=== PATIENT | male | born 1990 | race Caucasian/White ===

== ENCOUNTER 2018-08-02 18:06 | Outpatient (REF) | payer OTHER, MEDICAID, SELFPAY ==
[2018-08-02 19:10] LABS: Lithium 0.67 mmol/L (0.60-1.20)
[2018-08-02 19:23] LABS: ALT 67 U/L (12-78); AST 26 U/L (15-37); Albumin 4.7 g/dL (3.4-5.0); Alkaline Phosphatase 74 U/L (46-116); Anion Gap 8.9 mmol/L (3-11); BUN 15 mg/dL (7-18); Bilirubin, Total 0.9 mg/dL (0.2-1.0); CO2 27.1 mmol/L (21.0-32.0); Calcium 9.8 mg/dL (8.5-10.1); Chloride 105 mmol/L (98-107); Glucose 88 mg/dL (70-100); Potassium 4.2 mmol/L (3.5-5.1); Sodium 141 mmol/L (136-145); TSH 1.87 uIU/mL (0.358-3.74); Total Protein 7.8 g/dL (6.4-8.2)
== END 2018-08-02 18:26 ==
LOC: NCHCN 18:06
PROVIDERS: PCP Family Medicine; Visit Provider Nurse Practitioner Family
DX: E03.9 Hypothyroidism, unspecified (principal); Z51.81 Encounter for therapeutic drug level monitoring; Z79.899 Other long term (current) drug therapy; E66.8 Other obesity
CPT/HCPCS: 80053; 80178; 84443

== ENCOUNTER 2021-02-19 15:11 | Outpatient (REF) | payer MEDICARE, MEDICAID, SELFPAY ==
[2021-02-19 15:20] LABS: Abs Immature Grans 0.03 10^3/uL (0.0-0.06); Absolute Basophil Count 0.04 10^3/uL (0.0-0.2); Absolute Eosinophil Count 0.17 10^3/uL (0.0-0.7); Absolute Lymphocyte Count 1.58 10^3/uL (1.2-3.4); Absolute Monocyte Count 0.38 10^3/uL (0.1-0.8); Absolute Neutrophil Count 4.47 10^3/uL (1.2-6.7); Basophils % 0.6; Eosinophils % 2.5; HCT 52.8 % (40.0-50.0); HGB 17.5 g/dL (13.5-17.5); Immature Grans % 0.4; Lymphocytes % 23.7; MCHC 33.1 % (32.0-36.0); MCV 90.4 fL (80-95); MPV 10.3 fL (8.0-11.0); Monocytes % 5.7; Neutrophils % 67.1; Nucleated RBC 0 %; Platelet Count 314 10^3/uL (130-400); RBC 5.84 10^6/uL (4.36-5.78); RDW 12.6 % (11.8-14.1); RDW-SD 41.1 fL; WBC 6.67 10^3/uL (4.4-10.8)
[2021-02-19 15:34] LABS: Epithelial Cells Rare HPF (Negative); RBC Negative HPF (0-2); WBC 0-2 HPF (0-5)
[2021-02-19 15:35] LABS: Bacteria Negative HPF (Negative); C & S Indicated? No; Casts Negative LPF (Negative); Crystals Negative HPF (Negative); Mucus Negative (Negative); Other Cells Rare Renal (Negative)
[2021-02-19 15:50] LABS: ALT 98 U/L (16-63); AST 39 U/L (15-37); Albumin 5.3 g/dL (3.4-5.0); Alkaline Phosphatase 80 U/L (46-116); Anion Gap 8.7 mmol/L (3-11); BUN 14 mg/dL (7-18); Bilirubin, Total 1.3 mg/dL (0.2-1.0); CO2 30.3 mmol/L (21.0-32.0); CREATININE 1.2 mg/dL (0.70-1.30); Calcium 10.5 mg/dL (8.5-10.1); Chloride 102 mmol/L (98-107); Glucose 104 mg/dL (74-106); Potassium 4.1 mmol/L (3.5-5.1); Sodium 141 mmol/L (136-145); TSH (W/Ref FT4) 1.52 uIU/mL (0.36-3.74); Total Protein 8.7 g/dL (6.4-8.2)
[2021-02-19 16:31] LABS: Hemoglobin A1C 5.2 % (<5.7)
== END 2021-02-19 15:12 | disposition home or self-care (01) ==
LOC: NCHCN 15:11
PROVIDERS: PCP Nurse Practitioner Family; Visit Provider Nurse Practitioner Family
DX: E03.9 Hypothyroidism, unspecified (principal); Z79.899 Other long term (current) drug therapy; Z68.41 Body mass index [BMI] 40.0-44.9, adult; Z00.00 Encounter for general adult medical examination without abnormal findings
CPT/HCPCS: 80053; 80178; 81015; 83036; 84443; 85025

== ENCOUNTER 2021-05-17 18:45 | Emergency (ER) | payer MEDICARE, MEDICAID, SELFPAY ==
[2021-05-17] VITALS (31 sets, daily range): BP systolic 129–180; BP diastolic 76–116; PULSE 92–124; RESP 13–38; TEMP 36.7; O2SAT 93–100
--- NOTE | 2021-05-17 18:45 | RT.EKG_ITS ---
APPROVED REPORT Exam: Resting ECG Reason for Exam: od Patient Location: E HR:94 bpm ECG Measurements Heart Rate 94 AXIS IL 176 P 33 QRSd 110 QRS -15 QT 390 T 39 QTc 489 Conclusion Sinus rhythm...normal P axis, V-rate 60- 99 Prolonged QT interval...QTc >488mS. No STEMI. I have reviewed and interpreted ECG and agree with software generated interpretation.
--- NOTE | 2021-05-17 19:00 | DI.RAD_ITS ---
Exam(s) XR PORTABLE CHEST AP EXAM: XR PORTABLE CHEST AP CLINICAL HISTORY: OD, ? aspiration TECHNIQUE: 2D digital imaging was performed. COMPARISON: CR CHEST 2 VIEWS PA,LAT from 05/26/2015 FINDINGS: The exam is extremely limited by poor pulmonary inflation. There is no evidence of pneumothorax. No pleural effusion or infiltrate is visible. Heart size is likely within normal limits for degree of inspiration. IMPRESSION: Extremely limited exam. No acute pulmonary findings. DATA REPOSITORY: RADIATION DOSE DELIVERED:
[2021-05-17] MEDS: Ondansetron 4 MG/2 ML VIAL (19:12)
[2021-05-17] MEDS: LORazepam 2 MG/ML VIAL ×3 (19:13→20:08)
--- NOTE | 2021-05-17 19:14 | ED.GENADUL_ITS ---
Discharge Plan Disposition Patient Disposition: [facility] Condition: Critical Discharge Details Clinical Impression: Intentional diphenhydramine overdose, Seizure Primary Care Provider: Juan Francisco Rodríguez ED Provider: Winifred Alaniz Home Meds and New Rx's Prescriptions: No Action lithium carbonate 600 MG capsule 600 mg PO BID RF: 0 levothyroxine [Levoxyl] 50 MCG tablet 50 mcg PO DAILY RF: 0 cholecalciferol (vitamin D3) 1,000 UNIT capsule 1,000 units PO DAILY RF: 0 aripiprazole [Abilify] 20 MG tablet 20 mg PO DAILY RF: 0 quetiapine [Seroquel] 50 MG tablet 50 mg PO BID RF: 0 Discharge Data Discharge Date/Time-TO BE ENTERED AT DEPARTURE: 05/17/21 22:20 Medical Decision Making 1850 -- 30yo M w/ a h/o depression presents to the ED after intentional Benadryl overdose 10 minutes prior to arrival. BP 154/76. Heart rate 100. EMS reported that patient was awake and alert and oriented x3 and speaking in full sentences upon their arrival. He was able to ambulate onto the stretcher. Upon my assessment, patient mental status is sluggish but he is oriented x3. He is not able to state to me what he ingested and appears confused. EMS states that patient reports that he ingested 96 tabs of 50 mg Benadryl for total of 9600 mg minutes prior to arrival. PRADIP Morfin discussed with poison control who noted that main side effect regarding large Benadryl overdose include mainly anticholinergic side effects including hypertension, tachycardia, POLYSOMNOGRAPHY TECHNICIAN depression. With an amount of 9600 mg, can be concerned with seizures for which benzodiazepines can be given, and QRS widening for which bicarbonate 1 to 2 amp as needed can be given. If patient becomes asymptomatic, can consider discharge 8 hours of observation. If patient remains symptomatic, will need 12 to 24 hours of observation with ICU admission. Shortly after my assessment, patient began gagging, appeared to have large amount of secretions in his airway. This was suctioned and he vomited. He was given 4 mg Zofran and 1 mg Ativan IV. He remains tachycardic and hypertensive. Oxygen saturation mid to high 90s on room air. ABG noted a pH of 7.4, PCO2 38, PO2 64. HR low 100s, Narrow QRS on monitor. Patient placed on nasal cannula oxygen. 1914 -- Patient appears more sedated, sonorous respirations. Patient placed on nonrebreather. Low threshold for intubation for airway protection. Discussed with hospitalist who does not feel comfortable with admission here. [facility] transfer [place] contacted. 1944 -- Pt had 2 seizures [id number]. Patient given multiple doses of Ativan with some relief in seizure activity but appears agitated and postictal. Patient intubated with RSI using CMAC on 1st attempt. PRADIP Morfin d/w [facility] transfer center and cannot take the patient for several hours. Discussed with [facility] transfer center and patient accepted for admission. Accepting physician Dr. Christopher. Recommended 1 L of GoLYTELY through the OG tube. 2034 -- [facility] transfer center called and bed now available. Bed not yet available at [facility]. Will transfer pt to [facility] and accepting physician Dr. Bach. [facility] notified that transfer to them is cancelled. [facility] notified of 1 L of GoLYTELY given through OG tube. Portable chest x-ray noted intubation mainly in right mainstem bronchus with near opacification of left lung, but this was pulled back 2 cm and repeat chest x-ray noted near resolution of opacification of left lung and with tube remaining close to the bertin and was pulled back an additional 1 cm. Patient remained hemodynamically stable. Normal narrow QRS noted on monitor while in the ED. Medical Records Medical records reviewed: Yes I reviewed the patient's medical records. Imaging Data Radiologic Study: Radiologist's impression: XR Chest Exam date and time: 05/17/2021 8:49 PM Age: 30 years old Clinical indication: Other: Post intubation confirm TECHNIQUE: Imaging protocol: XR of the chest. Views: 1 view. COMPARISON: CR XR PORTABLE CHEST AP 05/17/2021 8:40 PM FINDINGS: Tubes, catheters and devices: There has been retraction of the endotracheal tube with its tip now residing 5 mm proximal to the bertin. Again noted is a nasogastric tube which extends at least to the level of the upper gastric body. Lungs: There has been re-expansion of most of the left lung with residual mild airspace opacity at the left lung base. Again noted is mild subsegmental atelectasis within the lower lateral right lung. There is no pulmonary vascular congestion. Pleural spaces: There is no evidence of pneumothorax. There are no pleural effusions present. Heart/Mediastinum: Heart size is indeterminate. Bones/joints: Unremarkable. IMPRESSION: 1. The tip of the endotracheal tube now resides 5 mm proximal to the bertin. Recommend further retraction by 1-2 cm. 2. Interval re-expansion of most of the left lung as described above. Lab Data Lab results reviewed: Yes I reviewed the patient's lab results. Labs: Laboratory Tests Range/Units 05/17/21 05/17/21 05/17/21 19:10 19:10 19:10 WBC (4.4-10.8) 10^3/uL 8.46 RBC (4.36-5.78) 10^6/uL 5.56 Hgb (13.5-17.5) g/dL 16.4 Hct (40.0-50.0) % 49.8 MCV (80-95) fL 89.6 MCH (27.0-33.0) pg 29.5 MCHC (32.0-36.0) % 32.9 RDW (11.8-14.1) % 12.4 Plt Count (130-400) 10^3/uL 303 MPV (8.0-11.0) fL 9.9 Immature Gran % 0.4 Neutrophils % 67.2 Lymphocytes % 26.6 Monocytes % 3.7 Eosinophils % 1.9 Basophils % 0.2 Nucleated RBC % % 0 Absolute Neutrophils (1.2-6.7) 10^3/uL 5.69 Absolute Lymphocytes (1.2-3.4) 10^3/uL 2.25 Absolute Monocytes (0.1-0.8) 10^3/uL 0.31 Absolute Eosinophils (0.0-0.7) 10^3/uL 0.16 Absolute Basophils (0.0-0.2) 10^3/uL 0.02 PT (9.3-11.0) sec INR (0.9-1.1) APTT (21.0-27.5) sec ABG Sample Site ABG pH (7.35-7.45) ABG pCO2 (35-45) mmHg ABG pO2 (80-105) mmHg ABG HCO3 (22-26) mmol/L ABG Total CO2 (23-27) mmol/L ABG O2 Saturation (95-98) % ABG Base Excess (-2-3) mmol/L VBG pH VBG pCO2 VBG pO2 VBG HCO3 VBG Total CO2 VBG O2 Saturation VBG Base Excess Oxygen Liter Flow L Sodium (136-145) mmol/L 142 Potassium (3.5-5.1) mmol/L 3.2 L Chloride (98-107) mmol/L 104 Carbon Dioxide (21.0-32.0) mmol/L 25.2 Anion Gap (3-11) mmol/L 12.8 H BUN (7-18) mg/dL 9 Creatinine (0.70-1.30) mg/dL 1.1 Estimated GFR/1.73 m2 (mL/min/1.73m2) >= 60.00 Glucose (74-106) mg/dL 87 Calcium (8.5-10.1) mg/dL 9.9 Magnesium (1.8-2.4) mg/dL 1.8 Total Bilirubin (0.2-1.0) mg/dL 2.4 H AST (15-37) U/L 38 H ALT (16-63) U/L 101 H Alkaline Phosphatase (46-116) U/L 65 Troponin I (<0.06) ng/mL < 0.05 Total Protein (6.4-8.2) g/dL 8.0 Albumin (3.4-5.0) g/dL 4.4 Urine Color (Yellow) Urine Clarity (Clear) Urine pH (5-8) Ur Specific [place] (1.005-1.025) Urine Protein (Negative) mg/dL Urine Ketones (Negative) mg/dL Urine Blood (Negative) Urine Nitrite (Negative) Urine Bilirubin (Negative) Urine Urobilinogen (Up TO 0.2) EU/dL Ur Leukocyte Esterase (Negative) Urine RBC (0-2) HPF Urine WBC (0-5) HPF Ur Epithelial Cells (Negative) HPF Urine Crystals (Negative) HPF Urine Bacteria (Negative) HPF Urine Mucus (Negative) Ur Culture Indicated? Urine Glucose (Negative) mg/dL Salicylates (<2.8) mg/dL < 2.8 Urine Opiates Screen (Negative) Urine Methadone Screen (Negative) Acetaminophen (10-30) ug/mL < 2 Ur Barbiturates Screen (Negative) Ur Tricyclics Screen (Negative) Ur Amphetamines Screen (Negative) U Benzodiazepines Scrn (Negative) Urine Cocaine Screen (Negative) Ur THC Screen (Negative) Ethyl Alcohol (<3) mg/dL 6.3 Range/Units 05/17/21 05/17/21 05/17/21 19:10 19:10 19:11 WBC (4.4-10.8) 10^3/uL RBC (4.36-5.78) 10^6/uL Hgb (13.5-17.5) g/dL Hct (40.0-50.0) % MCV (80-95) fL MCH (27.0-33.0) pg MCHC (32.0-36.0) % RDW (11.8-14.1) % Plt Count (130-400) 10^3/uL MPV (8.0-11.0) fL Immature Gran % Neutrophils % Lymphocytes % Monocytes % Eosinophils % Basophils % Nucleated RBC % % Absolute Neutrophils (1.2-6.7) 10^3/uL Absolute Lymphocytes (1.2-3.4) 10^3/uL Absolute Monocytes (0.1-0.8) 10^3/uL Absolute Eosinophils (0.0-0.7) 10^3/uL Absolute Basophils (0.0-0.2) 10^3/uL PT (9.3-11.0) sec 10.4 INR (0.9-1.1) 1.0 APTT (21.0-27.5) sec 26.3 ABG Sample Site ABG pH (7.35-7.45) ABG pCO2 (35-45) mmHg ABG pO2 (80-105) mmHg ABG HCO3 (22-26) mmol/L ABG Total CO2 (23-27) mmol/L ABG O2 Saturation (95-98) % ABG Base Excess (-2-3) mmol/L VBG pH Cancelled VBG pCO2 Cancelled VBG pO2 Cancelled VBG HCO3 Cancelled VBG Total CO2 Cancelled VBG O2 Saturation Cancelled VBG Base Excess Cancelled Oxygen Liter Flow L Sodium (136-145) mmol/L Potassium (3.5-5.1) mmol/L Chloride (98-107) mmol/L Carbon Dioxide (21.0-32.0) mmol/L Anion Gap (3-11) mmol/L BUN (7-18) mg/dL Creatinine (0.70-1.30) mg/dL Estimated GFR/1.73 m2 (mL/min/1.73m2) Glucose (74-106) mg/dL Calcium (8.5-10.1) mg/dL Magnesium (1.8-2.4) mg/dL Total Bilirubin (0.2-1.0) mg/dL AST (15-37) U/L ALT (16-63) U/L Alkaline Phosphatase (46-116) U/L Troponin I (<0.06) ng/mL < 0.05 Total Protein (6.4-8.2) g/dL Albumin (3.4-5.0) g/dL Urine Color (Yellow) Urine Clarity (Clear) Urine pH (5-8) Ur Specific [place] (1.005-1.025) Urine Protein (Negative) mg/dL Urine Ketones (Negative) mg/dL Urine Blood (Negative) Urine Nitrite (Negative) Urine Bilirubin (Negative) Urine Urobilinogen (Up TO 0.2) EU/dL Ur Leukocyte Esterase (Negative) Urine RBC (0-2) HPF Urine WBC (0-5) HPF Ur Epithelial Cells (Negative) HPF Urine Crystals (Negative) HPF Urine Bacteria (Negative) HPF Urine Mucus (Negative) Ur Culture Indicated? Urine Glucose (Negative) mg/dL Salicylates (<2.8) mg/dL Urine Opiates Screen (Negative) Urine Methadone Screen (Negative) Acetaminophen (10-30) ug/mL Ur Barbiturates Screen (Negative) Ur Tricyclics Screen (Negative) Ur Amphetamines Screen (Negative) U Benzodiazepines Scrn (Negative) Urine Cocaine Screen (Negative) Ur THC Screen (Negative) Ethyl Alcohol (<3) mg/dL Range/Units 05/17/21 05/17/21 05/17/21 19:20 19:20 19:20 WBC (4.4-10.8) 10^3/uL RBC (4.36-5.78) 10^6/uL Hgb (13.5-17.5) g/dL Hct (40.0-50.0) % MCV (80-95) fL MCH (27.0-33.0) pg MCHC (32.0-36.0) % RDW (11.8-14.1) % Plt Count (130-400) 10^3/uL MPV (8.0-11.0) fL Immature Gran % Neutrophils % Lymphocytes % Monocytes % Eosinophils % Basophils % Nucleated RBC % % Absolute Neutrophils (1.2-6.7) 10^3/uL Absolute Lymphocytes (1.2-3.4) 10^3/uL Absolute Monocytes (0.1-0.8) 10^3/uL Absolute Eosinophils (0.0-0.7) 10^3/uL Absolute Basophils (0.0-0.2) 10^3/uL PT (9.3-11.0) sec INR (0.9-1.1) APTT (21.0-27.5) sec ABG Sample Site Left Radial ABG pH (7.35-7.45) 7.40 ABG pCO2 (35-45) mmHg 38 ABG pO2 (80-105) mmHg 64 L ABG HCO3 (22-26) mmol/L 24 ABG Total CO2 (23-27) mmol/L 20 L ABG O2 Saturation (95-98) % 94 L ABG Base Excess (-2-3) mmol/L -1 VBG pH VBG pCO2 VBG pO2 VBG HCO3 VBG Total CO2 VBG O2 Saturation VBG Base Excess Oxygen Liter Flow L Sodium (136-145) mmol/L Potassium (3.5-5.1) mmol/L Chloride (98-107) mmol/L Carbon Dioxide (21.0-32.0) mmol/L Anion Gap (3-11) mmol/L BUN (7-18) mg/dL Creatinine (0.70-1.30) mg/dL Estimated GFR/1.73 m2 (mL/min/1.73m2) Glucose (74-106) mg/dL Calcium (8.5-10.1) mg/dL Magnesium (1.8-2.4) mg/dL Total Bilirubin (0.2-1.0) mg/dL AST (15-37) U/L ALT (16-63) U/L Alkaline Phosphatase (46-116) U/L Troponin I (<0.06) ng/mL Total Protein (6.4-8.2) g/dL Albumin (3.4-5.0) g/dL Urine Color (Yellow) Yellow Urine Clarity (Clear) Clear Urine pH (5-8) 7.0 Ur Specific [place] (1.005-1.025) 1.010 Urine Protein (Negative) mg/dL 30 H Urine Ketones (Negative) mg/dL Negative Urine Blood (Negative) Negative Urine Nitrite (Negative) Negative Urine Bilirubin (Negative) Negative Urine Urobilinogen (Up TO 0.2) EU/dL 0.2 Ur Leukocyte Esterase (Negative) Negative Urine RBC (0-2) HPF 0-2 Urine WBC (0-5) HPF 0-2 Ur Epithelial Cells (Negative) HPF Negative Urine Crystals (Negative) HPF Negative Urine Bacteria (Negative) HPF Negative Urine Mucus (Negative) Negative Ur Culture Indicated? No Urine Glucose (Negative) mg/dL Negative Salicylates (<2.8) mg/dL Urine Opiates Screen (Negative) Negative Urine Methadone Screen (Negative) Negative Acetaminophen (10-30) ug/mL Ur Barbiturates Screen (Negative) Negative Ur Tricyclics Screen (Negative) Negative Ur Amphetamines Screen (Negative) Negative U Benzodiazepines Scrn (Negative) Negative Urine Cocaine Screen (Negative) Negative Ur THC Screen (Negative) Positive A Ethyl Alcohol (<3) mg/dL Range/Units 05/17/21 21:27 WBC (4.4-10.8) 10^3/uL RBC (4.36-5.78) 10^6/uL Hgb (13.5-17.5) g/dL Hct (40.0-50.0) % MCV (80-95) fL MCH (27.0-33.0) pg MCHC (32.0-36.0) % RDW (11.8-14.1) % Plt Count (130-400) 10^3/uL MPV (8.0-11.0) fL Immature Gran % Neutrophils % Lymphocytes % Monocytes % Eosinophils % Basophils % Nucleated RBC % % Absolute Neutrophils (1.2-6.7) 10^3/uL Absolute Lymphocytes (1.2-3.4) 10^3/uL Absolute Monocytes (0.1-0.8) 10^3/uL Absolute Eosinophils (0.0-0.7) 10^3/uL Absolute Basophils (0.0-0.2) 10^3/uL PT (9.3-11.0) sec INR (0.9-1.1) APTT (21.0-27.5) sec ABG Sample Site Left Radial ABG pH (7.35-7.45) 7.31 L ABG pCO2 (35-45) mmHg 53 H ABG pO2 (80-105) mmHg 290 H ABG HCO3 (22-26) mmol/L 26 ABG Total CO2 (23-27) mmol/L ABG O2 Saturation (95-98) % > 99 H ABG Base Excess (-2-3) mmol/L 0 VBG pH VBG pCO2 VBG pO2 VBG HCO3 VBG Total CO2 VBG O2 Saturation VBG Base Excess Oxygen Liter Flow L AC 15 440 100% 5 Sodium (136-145) mmol/L Potassium (3.5-5.1) mmol/L Chloride (98-107) mmol/L Carbon Dioxide (21.0-32.0) mmol/L Anion Gap (3-11) mmol/L BUN (7-18) mg/dL Creatinine (0.70-1.30) mg/dL Estimated GFR/1.73 m2 (mL/min/1.73m2) Glucose (74-106) mg/dL Calcium (8.5-10.1) mg/dL Magnesium (1.8-2.4) mg/dL Total Bilirubin (0.2-1.0) mg/dL AST (15-37) U/L ALT (16-63) U/L Alkaline Phosphatase (46-116) U/L Troponin I (<0.06) ng/mL Total Protein (6.4-8.2) g/dL Albumin (3.4-5.0) g/dL Urine Color (Yellow) Urine Clarity (Clear) Urine pH (5-8) Ur Specific [place] (1.005-1.025) Urine Protein (Negative) mg/dL Urine Ketones (Negative) mg/dL Urine Blood (Negative) Urine Nitrite (Negative) Urine Bilirubin (Negative) Urine Urobilinogen (Up TO 0.2) EU/dL Ur Leukocyte Esterase (Negative) Urine RBC (0-2) HPF Urine WBC (0-5) HPF Ur Epithelial Cells (Negative) HPF Urine Crystals (Negative) HPF Urine Bacteria (Negative) HPF Urine Mucus (Negative) Ur Culture Indicated? Urine Glucose (Negative) mg/dL Salicylates (<2.8) mg/dL Urine Opiates Screen (Negative) Urine Methadone Screen (Negative) Acetaminophen (10-30) ug/mL Ur Barbiturates Screen (Negative) Ur Tricyclics Screen (Negative) Ur Amphetamines Screen (Negative) U Benzodiazepines Scrn (Negative) Urine Cocaine Screen (Negative) Ur THC Screen (Negative) Ethyl Alcohol (<3) mg/dL ECG Data Attestation: I personally reviewed and interpreted this ECG (s) as follows: Interpretation: rate of 94, sinus, prolonged QT at 489. No STEMI. HPI General Mode of arrival: ambulatory . Date/Time Provider Initiated Documentation: 05/17/21 18:50 . Limitations to Documentation: no limitations . Information obtained by: patient . HPI Narrative: Pt is a 30yo M w/ a h/o depression who presents to the ED after intentionally ingesting 96 tabs of 50mg benadryl 10 minutes prior to arrival. EMS reported that pt got into an argument with his landlord and threatened suicide to him and then ingested 96 tabs of 50 mg Benadryl for a total of 9600 mg. EMS reports upon their arrival, patient was awake and alert, speaking in full sentences and was able to ambulate onto the stretcher. They were unable to obtain IV access in route. Shortly after arrival to the ED, patient became more drowsy. Patient is unable to state to me which medication he ingested but does not his head yes when shown the empty bottles. He denies any pain. Related Data Home Medications Medication Instructions Recorded Confirmed aripiprazole [Abilify] 20 mg PO DAILY 12/02/14 05/17/21 cholecalciferol (vitamin D3) 1,000 units PO DAILY 12/02/14 05/17/21 levothyroxine [Levoxyl] 50 mcg PO DAILY 12/02/14 05/17/21 lithium carbonate 600 mg PO BID 12/02/14 05/17/21 quetiapine [Seroquel] 50 mg PO BID 12/02/14 05/17/21 Allergies Allergy/AdvReac Type Severity Reaction Status Date / Time grapefruit AdvReac Dizziness/L Unverified 05/17/21 19:00 ightheade General Stated Complaint: Suicide-Atempt JANET: 2 Review of Systems All systems reviewed & are unremarkable except as noted in HPI and below Constitutional Constitutional: Reports as per HPI, Denies chills and Denies fever(s) Eyes Eyes: Denies blurry vision ENT Ears, Nose, Mouth, and Throat: Denies dizziness, Denies sore throat and Denies throat swelling Cardiovascular Cardiovascular: Denies chest pain and Denies dyspnea Respiratory Respiratory: Denies cough and Denies dyspnea Gastrointestinal Gastrointestinal: Denies abdominal pain, Denies diarrhea and Denies vomiting Genitourinary Genitourinary: Denies hematuria and Denies dysuria Musculoskeletal Musculoskeletal: Denies back pain and Denies numbness Integumentary/Breasts Skin/Breast: Denies lesions and Denies rash Neurologic Neurologic: Denies dizziness, Denies localized weakness and Denies numbness Allergic/Immunologic Allergic/Immunologic: Denies throat swelling PFSH Medical History (Updated 05/17/21 @ 20:44 by Winifred Alaniz DO) Depression Hypothyroidism Surgical History (Updated 05/17/21 @ 19:16 by Winifred Alaniz DO) History of oral surgery Social History (Updated 05/17/21 @ 19:17 by Winifred Alaniz DO) Smoking/Tobacco Use Status: Current every day Smoking risk assessment performed?: Yes Alcohol Intake: current Alcohol Intake frequency: a few times a week Drug use: Never Do you feel safe in your relationship?: Yes Exam Const General: cooperative and no acute distress Nutritional Appearance: obese morbidly obese Orientation: awake, oriented x3 and confused HENMT Head: normal to inspection Ears: hearing grossly normal bilaterally and external ears normal Face and sinus: normal facial exam Mouth: oral mucosae normal Throat: posterior oropharynx normal, uvula midline and no peritonsillar masses Eyes General: appearance normal, both eyes and all related structures Pupils: PERRL EOM: EOM intact bilaterally Neck Neck: normal visual inspection and No submandibular swelling Lymphatic: no lymphadenopathy noted Chest Chest: normal inspection of the chest and no tenderness Resp Effort & Inspection: normal respiratory effort and able to speak in complete sentences Auscultation: clear to auscultation bilaterally Cardio Rate: tachycardic Rhythm: regular rhythm GI Inspection: normal to inspection and obesity Palpation: soft, not firm, not rigid and nontender Auscultation: normal bowel sounds Male General Exam: Yes normal external exam Skin General skin exam: no rashes or lesions noted Neuro General: patient awake, patient oriented x3 and moves all extremities Cognition: normal cognition Speech: abnormal speech slurred Motor: muscle tone normal throughout Sensory Exam: no sensory deficits noted Extrem General: normal to inspection, full ROM, capillary refill normal, no calf tenderness bilaterally and no edema Psych Appearance: grossly normal Mental Status: other (sluggish, slowed responses, drowsy) Speech and Movement: slowed movement and slurred speech Course Vital Signs Vital signs: Vital Signs Temperature 98.1 F 05/17/21 18:50 Pulse 100 H 05/17/21 18:50 Respiratory Rate 25 H 05/17/21 18:50 Blood Pressure 154/76 H 05/17/21 18:50 Pulse Oximetry 96 05/17/21 18:50 Temperature 98.1 F 05/17/21 18:50 Pulse 100 H 05/17/21 18:50 Respiratory Rate 25 H 05/17/21 18:50 Blood Pressure 154/76 H 05/17/21 18:50 Blood Pressure Position Sitting 05/17/21 18:50 Pulse Oximetry 96 05/17/21 18:50 Oxygen Delivery Method Room Air 05/17/21 18:50 Oxygen Flow Rate 0 05/17/21 18:50 Lab/Test Results Lab/Test Results: Laboratory Tests Range/Units 05/17/21 19:11 VBG pH Cancelled VBG pCO2 Cancelled VBG pO2 Cancelled VBG HCO3 Cancelled VBG Total CO2 Cancelled VBG O2 Saturation Cancelled VBG Base Excess Cancelled Procedures Intubation Time out performed: Yes sedative: Etomidate Mg Given: 20 paralytic: Succinylcholine Mg Given: 100 Laryngoscope: fiberoptic video scope ET Tube Size: 7.5 ET Tube Uncuffed: No Tube Secured Depth (cm): 25 Tube Secured Location: lips Tube Placement Confirmation: visualized tube passing through cords and equal breath sounds bilaterally Patient Tolerated Procedure: well Intubation Complications: none Critical Care Time Critical Care Time Critical Care Time: Yes Total Critical Care Time: 120 Attestation: I spent 120 minutes of critical care time with this patient. This does not include time spent on separately reported billable procedures.
[2021-05-17 19:25] LABS: BE -1 mmol/L (-2-3); HCO3 24 mmol/L (22-26); pCO2 38 mmHg (35-45); pO2 64 mmHg (80-105); sO2 94 % (95-98); tCO2 20 mmol/L (23-27)
[2021-05-17 19:28] LABS: Site Left Radial
[2021-05-17] MEDS: Normal Saline 1,000 ML 1000 ML IV (19:45)
[2021-05-17 19:56] LABS: Abs Immature Grans 0.03 10^3/uL (0.0-0.06); Absolute Basophil Count 0.02 10^3/uL (0.0-0.2); Absolute Eosinophil Count 0.16 10^3/uL (0.0-0.7); Absolute Lymphocyte Count 2.25 10^3/uL (1.2-3.4); Absolute Monocyte Count 0.31 10^3/uL (0.1-0.8); Absolute Neutrophil Count 5.69 10^3/uL (1.2-6.7); Basophils % 0.2; Eosinophils % 1.9; HCT 49.8 % (40.0-50.0); HGB 16.4 g/dL (13.5-17.5); Immature Grans % 0.4; Lymphocytes % 26.6; MCH 29.5 pg (27.0-33.0); MCHC 32.9 % (32.0-36.0); MCV 89.6 fL (80-95); MPV 9.9 fL (8.0-11.0); Monocytes % 3.7; Neutrophils % 67.2; Nucleated RBC 0 %; Platelet Count 303 10^3/uL (130-400); RBC 5.56 10^6/uL (4.36-5.78); RDW 12.4 % (11.8-14.1); RDW-SD 41.1 fL; WBC 8.46 10^3/uL (4.4-10.8)
[2021-05-17 20:02] LABS: Bilirubin Negative (Negative); Blood Negative (Negative); Clarity Clear (Clear); Glucose Negative (Negative); Ketones Negative (Negative); Leukocyte Esterase Negative (Negative); Nitrite Negative (Negative); Urobilinogen 0.2 EU/dL (Up TO 0.2)
[2021-05-17 20:12] LABS: Bacteria Negative HPF (Negative); C & S Indicated? No; Crystals Negative HPF (Negative); Epithelial Cells Negative HPF (Negative); Mucus Negative (Negative); RBC 0-2 HPF (0-2); WBC 0-2 HPF (0-5)
[2021-05-17 20:14] LABS: Acetaminophen < 2 ug/mL (10-30); Salicylate < 2.8 mg/dL (<2.8)
--- NOTE | 2021-05-17 20:16 | DI.VRAD_ITS ---
PROCEDURE INFORMATION: Exam: XR Chest Exam date and time: 05/17/2021 7:13 PM Age: 30 years old Clinical indication: Other: Od, ? aspiration TECHNIQUE: Imaging protocol: XR of the chest. Views: 1 view. COMPARISON: CR CHEST 2 VIEWS PA,LAT 05/26/2015 2:48 PM FINDINGS: Lungs: There are low lung volumes with mild elevation of the right hemidiaphragm, limiting evaluation. The lungs are clear. There is no pulmonary vascular congestion. Pleural spaces: There are no pleural effusions present. Heart/Mediastinum: The heart size indeterminate. Bones/joints: Unremarkable. IMPRESSION: No active cardiopulmonary disease identified. Dictated and Authenticated by: Jair Mohr MD. Ordering:MOSHE Haynes MD
[2021-05-17 20:17] LABS: PTT Activated 26.3 sec (21.0-27.5); Prothrombin Time 10.4 sec (9.3-11.0)
[2021-05-17] MEDS: PROPOFOL 1,000 MG/100 ML BTL 7.7 MG (20:27)
[2021-05-17 20:28] LABS: *AMPHETAMINES SCREEN URINE Negative (Negative); *BARBITURATES SCREEN URINE Negative (Negative); *BENZODIAZEPINES SCREEN URINE Negative (Negative); Cannabinoids THC Positive (Negative); Cocaine Screen,Urine Negative (Negative); METHADONE URINE SCREEN Negative (Negative); OPIATES URINE SCREEN Negative (Negative)
[2021-05-17 20:30] LABS: ALT 101 U/L (16-63); AST 38 U/L (15-37); Albumin 4.4 g/dL (3.4-5.0); Alkaline Phosphatase 65 U/L (46-116); Anion Gap 12.8 mmol/L (3-11); BUN 9 mg/dL (7-18); Bilirubin, Total 2.4 mg/dL (0.2-1.0); CO2 25.2 mmol/L (21.0-32.0); CREATININE 1.1 mg/dL (0.70-1.30); Calcium 9.9 mg/dL (8.5-10.1); Chloride 104 mmol/L (98-107); ETHANOL BLOOD 6.3 mg/dL (<3); Glucose 87 mg/dL (74-106); Magnesium 1.8 mg/dL (1.8-2.4); Potassium 3.2 mmol/L (3.5-5.1); Sodium 142 mmol/L (136-145); Troponin I < 0.05 ng/mL (<0.06)
--- NOTE | 2021-05-17 20:30 | DI.RAD_ITS ---
Exam(s) XR PORTABLE CHEST AP POST LINE EXAM: XR PORTABLE CHEST AP POST LINE CLINICAL HISTORY: intubation placement TECHNIQUE: 2D digital imaging was performed. COMPARISON: CR,XR XR PORTABLE CHEST AP from 119:26 FINDINGS: There is now complete opacification of the left hemithorax. A nasogastric tube has been inserted whi ch projects below the diaphragm. An endotracheal tube has been placed which projects in the right ma in bronchus. The right lung shows mildly increased linear densities but no focal infiltrate. No rig ht pleural effusion is seen.. IMPRESSION: Endotracheal tube positioned in right main bronchus. Recommend right retraction by 3-4 cm. Complete opacification of the left lung could indicate severe atelectasis versus acute infiltrate. DATA REPOSITORY: RADIATION DOSE DELIVERED:
[2021-05-17] MEDS: Etomidate 20 MG/10 ML VIAL (20:31)
[2021-05-17 20:34] LABS: Troponin I < 0.05 ng/mL (<0.06)
[2021-05-17 20:39] LABS: Tricyclic Antidepressants Negative (Negative)
--- NOTE | 2021-05-17 20:45 | DI.RAD_ITS ---
Exam(s) XR PORTABLE CHEST AP POST LINE EXAM: XR PORTABLE CHEST AP POST LINE CLINICAL HISTORY: post-intubation, confirm TECHNIQUE: 2D digital imaging was performed. COMPARISON: CR,XR XR PORTABLE CHEST AP POST LINE from 05/17/2021 FINDINGS: The endotracheal tube has been pulled back, now at the level of the bertin. There has been re-expans ion of the left lung. The lungs are not well inflated. There is bilateral atelectasis, left greater than right. No effusion is visible. The nasogastric tube remains in place. IMPRESSION: Re-expansion of the left lung status post retraction of the endo tracheal tube now located above the level of the bertin. DATA REPOSITORY: RADIATION DOSE DELIVERED:
--- NOTE | 2021-05-17 21:04 | DI.VRAD_ITS ---
Addendum created by Jair Mohr MD on 05/17/2021 9:16:33 PM EDT: COMMENT: THIS REPORT CONTAINS FINDINGS THAT MAY BE CRITICAL TO PATIENT CARE. The exam findings were verbally communicated by me to valeria morin via telephone conference at 9:09 PM EDT on 05/17/2021. The findings were acknowledged and understood. Initial report created on 05/17/2021 9:04:29 PM EDT: PROCEDURE INFORMATION: Exam: XR Chest Exam date and time: 05/17/2021 8:35 PM Age: 30 years old Clinical indication: Other: Post intubation TECHNIQUE: Imaging protocol: XR of the chest. Views: 1 view. COMPARISON: CR XR PORTABLE CHEST AP 05/17/2021 7:25 PM FINDINGS: Tubes, catheters and devices: There has been interval placement of a nasogastric tube with its tip projecting at the right mainstem bronchus, approximately 2.5 cm distal to the bertin. There is a new nasogastric tube which extends to the left upper quadrant of the abdomen, extending off the radiographic field of view. Lungs: There is new near complete opacification of the left lung, suggesting postobstructive atelectasis. There is new mild subsegmental atelectasis in the lower lateral right lung. There is no congestion of the right lung. Pleural spaces: No right pleural effusion is identified. Heart/Mediastinum: Heart size is indeterminate. Bones/joints: Unremarkable. IMPRESSION: 1. The tip of the new endotracheal tube resides within the right mainstem bronchus. Recommend retraction by at least 3.5 cm. 2. New near complete opacification of the left lung, suggesting postobstructive atelectasis associated with the endotracheal tube extending to the right mainstem bronchus. 3. New nasogastric tube extending at least to the level of the gastric body. Dictated and Authenticated by: Jair Mohr MD. Ordering:FARTUN Vitale MD
--- NOTE | 2021-05-17 21:11 | DI.VRAD_ITS ---
PROCEDURE INFORMATION: Exam: XR Chest Exam date and time: 05/17/2021 8:49 PM Age: 30 years old Clinical indication: Other: Post intubation confirm TECHNIQUE: Imaging protocol: XR of the chest. Views: 1 view. COMPARISON: CR XR PORTABLE CHEST AP 05/17/2021 8:40 PM FINDINGS: Tubes, catheters and devices: There has been retraction of the endotracheal tube with its tip now residing 5 mm proximal to the bertin. Again noted is a nasogastric tube which extends at least to the level of the upper gastric body. Lungs: There has been re-expansion of most of the left lung with residual mild airspace opacity at the left lung base. Again noted is mild subsegmental atelectasis within the lower lateral right lung. There is no pulmonary vascular congestion. Pleural spaces: There is no evidence of pneumothorax. There are no pleural effusions present. Heart/Mediastinum: Heart size is indeterminate. Bones/joints: Unremarkable. IMPRESSION: 1. The tip of the endotracheal tube now resides 5 mm proximal to the bertin. Recommend further retraction by 1-2 cm. 2. Interval re-expansion of most of the left lung as described above. Findings were discussed with valeria morin at 05/17/2021 9:09 PM EDT. Dictated and Authenticated by: Jair Mohr MD. Ordering:FARTUN Vitale MD
[2021-05-17 21:30] LABS: BE 0 mmol/L (-2-3); HCO3 26 mmol/L (22-26); pCO2 53 mmHg (35-45); pH 7.31 (7.35-7.45); pO2 290 mmHg (80-105)
[2021-05-17 21:33] LABS: Site Left Radial; sO2 > 99 % (95-98)
[2021-05-17] MEDS: Normal Saline 1,000 ML 125 ML IV (21:35)
== END 2021-05-17 22:20 | disposition short-term general hospital (02) ==
PROVIDERS: Physician Assistant; Emergency Provider Physician Assistant; PCP Nurse Practitioner Family
DX: T45.0X2A Poisoning by antiallergic and antiemetic drugs, intentional self-harm, initial encounter (principal); R94.31 Abnormal electrocardiogram [ECG] [EKG]; R56.9 Unspecified convulsions; F32.9 Major depressive disorder, single episode, unspecified
CPT/HCPCS: 31500; 36415; 51702; 71045; 80053; 80307; 82805; 93005; 96361; 96365; 96366; 96374; 96375; 96376; 99285; 36600; 80320; 80329; 81003; 81015; 83735; 84484; 85025; 85610; 85730; 93010; J2060; J2405

== ENCOUNTER 2022-09-08 15:09 | Outpatient (REF) | payer MEDICARE, MEDICAID, SELFPAY ==
[2022-09-08 18:22] LABS: HCT 52.4 % (40.0-50.0); HGB 17.3 g/dL (13.5-17.5); MCH 30.1 pg (27.0-33.0); MCV 91 fL (80-95); MPV 10.2 fL (8.0-11.0); Platelet Count 298 10^3/uL (130-400); RBC 5.75 10^6/uL (4.36-5.78); RDW 12.8 % (11.8-14.1); RDW-SD 43.1 fL; WBC 6.45 10^3/uL (4.4-10.8)
[2022-09-08 18:38] LABS: Lithium 0.8 mmol/l (0.6-1.2)
[2022-09-08 18:42] LABS: Hemoglobin A1C 5.4 % (<5.7)
[2022-09-08 18:50] LABS: ALT 80 U/L (16-63); AST 36 U/L (15-37); Albumin 4.5 g/dL (3.4-5.0); Alkaline Phosphatase 66 U/L (46-116); Anion Gap 7.5 mmol/L (3-11); BUN 10 mg/dL (7-18); Bilirubin, Total 1.1 mg/dL (0.2-1.0); CO2 29.5 mmol/L (21.0-32.0); CREATININE 1.1 mg/dL (0.70-1.30); Calcium 9.8 mg/dL (8.5-10.1); Calculated LDL 155 mg/dL (<100); Chloride 105 mmol/L (98-107); Cholesterol 232 mg/dL (<200); Estimated GFR 92.61 (mL/min/1.73m2); Glucose 83 mg/dL (74-106); HDL Cholesterol 47 mg/dL (40-60); Potassium 4.1 mmol/L (3.5-5.1); Sodium 142 mmol/L (136-145); Total Protein 8.2 g/dL (6.4-8.2); Triglyceride 153 mg/dL (<150)
== END 2022-09-08 15:10 | disposition home or self-care (01) ==
LOC: NCHCN 15:09
PROVIDERS: Visit Provider Nurse Practitioner Family
DX: R74.8 Abnormal levels of other serum enzymes (principal); Z79.899 Other long term (current) drug therapy; Z13.220 Encounter for screening for lipoid disorders; F31.81 Bipolar II disorder; E03.9 Hypothyroidism, unspecified
CPT/HCPCS: 80053; 80061; 85027; 80178; 83036; 84443

== ENCOUNTER 2023-10-27 16:07 | Outpatient (REF) | payer MEDICARE, MEDICAID, SELFPAY ==
[2023-10-27 19:56] LABS: Abs Immature Grans 0.03 10^3/uL (0.0-0.06); Absolute Basophil Count 0.02 10^3/uL (0.0-0.2); Absolute Eosinophil Count 0.29 10^3/uL (0.0-0.7); Absolute Lymphocyte Count 1.36 10^3/uL (1.2-3.4); Absolute Monocyte Count 0.32 10^3/uL (0.1-0.8); Absolute Neutrophil Count 3.83 10^3/uL (1.2-6.7); Basophils % 0.3; HCT 53.9 % (40.0-50.0); HGB 17.4 g/dL (13.5-17.5); Immature Grans % 0.5; Lithium 0.4 mmol/l (0.6-1.2); Lymphocytes % 23.2; MCH 29.6 pg (27.0-33.0); MCHC 32.3 % (32.0-36.0); MCV 92 fL (80-95); MPV 10.2 fL (8.0-11.0); Monocytes % 5.5; Neutrophils % 65.5; Platelet Count 282 10^3/uL (130-400); RBC 5.88 10^6/uL (4.36-5.78); RDW 13.3 % (11.8-14.1); WBC 5.85 10^3/uL (4.4-10.8)
[2023-10-27 20:09] LABS: AST 29 U/L (15-37); Albumin 4.4 g/dL (3.4-5.0); Alkaline Phosphatase 78 U/L (46-116); Anion Gap 6.7 mmol/L (3-11); BUN 6 mg/dL (7-18); Bilirubin, Total 0.9 mg/dL (0.2-1.0); CO2 31.3 mmol/L (21.0-32.0); Calcium 10.1 mg/dL (8.5-10.1); Chloride 106 mmol/L (98-107); Estimated GFR 103.19 (mL/min/1.73m2); Glucose 82 mg/dL (74-106); Sodium 144 mmol/L (136-145); TSH 0.72 uIU/mL (0.36-3.74); Total Protein 7.8 g/dL (6.4-8.2)
[2023-10-27 20:14] LABS: Hemoglobin A1C 5.4 % (<5.7)
[2023-10-27 20:24] LABS: ALT 106 U/L (16-63)
== END 2023-10-27 16:08 | disposition home or self-care (01) ==
LOC: NCHCN 16:07
PROVIDERS: Visit Provider Nurse Practitioner Family
DX: E03.9 Hypothyroidism, unspecified (principal); F31.81 Bipolar II disorder; Z79.899 Other long term (current) drug therapy; Z51.81 Encounter for therapeutic drug level monitoring; E66.01 Morbid (severe) obesity due to excess calories; Z68.41 Body mass index [BMI] 40.0-44.9, adult
CPT/HCPCS: 80053; 80178; 83036; 84443; 85025

== ENCOUNTER 2024-04-05 15:48 | Outpatient (REF) | payer MEDICARE, MEDICAID, SELFPAY ==
[2024-04-05 18:49] LABS: Lithium 0.9 mmol/L (0.6-1.2)
[2024-04-05 18:55] LABS: Hemoglobin A1C 5.6 % (<5.7)
[2024-04-05 19:14] LABS: ALT 85 U/L (16-63); AST 28 U/L (15-37); Albumin 4.3 g/dL (3.4-5.0); Alkaline Phosphatase 80 U/L (46-116); Anion Gap 7.1 mmol/L (3-11); BUN 9 mg/dL (7-18); Bilirubin, Total 1.3 mg/dL (0.2-1.0); CO2 30.9 mmol/L (21.0-32.0); Calcium 9.6 mg/dL (8.5-10.1); Chloride 103 mmol/L (98-107); Estimated GFR 103.19 (mL/min/1.73m2); Glucose 88 mg/dL (74-106); NT-proBNP 9 pg/mL (<300); Potassium 3.7 mmol/L (3.5-5.1); Sodium 141 mmol/L (136-145); TSH 0.97 uIU/Ml (0.36-3.74); Total Protein 7.3 g/dL (6.4-8.2)
== END 2024-04-05 15:49 | disposition home or self-care (01) ==
LOC: NCHCN 15:48
PROVIDERS: Visit Provider Nurse Practitioner Family
DX: R60.0 Localized edema (principal)
CPT/HCPCS: 80053; 80178; 83036; 83880; 84439; 84443

== ENCOUNTER 2024-04-16 15:35 | Outpatient (REF) | payer MEDICARE, MEDICAID, SELFPAY | END 2024-04-16 15:36 | disposition home or self-care (01) | LOC: LBN 15:35 | PROVIDERS: Visit Provider Nurse Practitioner Family | DX: J02.9 Acute pharyngitis, unspecified (principal) | CPT/HCPCS: 87070 ==

== ENCOUNTER 2024-04-22 06:37 | Outpatient (CLI) | payer MEDICARE, MEDICAID, SELFPAY ==
[2024-04-22] MEDS: Levalbuterol HFA 15 GM INH 4 PUFF IH (11:20)
[2024-04-22] MEDS: Inhaler, Assist Device 1 EACH MC (11:20)
--- NOTE | 2024-05-13 14:39 | W.PFT ---
Date of service: 04/22/24 Time of Service: 10:05 Pulmonary Function Test Result Requesting Provider Esperanza Turner Indications: ARGUETA Interpretation Spirometry: Spirometry shows normal FEV1/FVC but decreased FEV1 and FVC. Lung Volumes: Moderate decrease in lung volumes Diffusion Capacity: Moderate decrease in diffusion Impression Normal spirometry w/ moderate restrictive ventilatory defect, no air trapping and moderate decrease in diffusion. Flow volume curve suggests a degree of restriction. Findings could be c/w possible history of ILD. Body habitus also could account for restriction but not decreased diffusion. Clinical correlation is advised. Clinical Correlation therefore is recommended.
== END 2024-04-22 06:38 | disposition home or self-care (01) ==
LOC: RT 06:37
PROVIDERS: Visit Provider Nurse Practitioner Family
DX: R06.09 Other forms of dyspnea (principal); J98.4 Other disorders of lung
CPT/HCPCS: 00123; 94060; 94726; 94729

== ENCOUNTER → 2024-05-02 00:45 | Outpatient (CLI) | payer MEDICARE, MEDICAID, SELFPAY ==
--- NOTE | 2024-05-02 12:30 | DI.US_ITS ---
APPROVED REPORT EXAM: Comprehensive 2D, Doppler, and color-flow Echocardiogram Patient Location: Out-Patient Database Marketing Specialist: Kyara Dominguez RDCS (AE) Indications: Bilateral lower limb edema Other Information Study Quality: Adequate. Technically limited study due to body habitus, exam done supine. Conclusion Moderate concentric left ventricular hypertrophy. EF biplane is 60%, visually was greater than 65%. Wall motion is hyperdynamic. Dynamic left ventricular outflow tract obstruction Both atria are normal in size Normal right ventricular size and function There is no structural or hemodynamically significant valvular disease Wall motion Left Ventricle The left ventricle is normal size. The left ventricular systolic function is normal. The left ventric ular ejection fraction is within the normal range. Moderate concentric left ventricular hypertrophy E cho findings are consistent with a left ventricular outflow tract obstruction. There is normal LV seg mental wall motion. There is no ventricular septal defect visualized. LVEF is 60%. Right Ventricle The right ventricle is normal size. The right ventricular systolic function is normal. Atria The left atrium size is normal. The right atrium size is normal. The interatrial septum is intact wit h no evidence for an atrial septal defect. Aortic Valve The aortic valve is normal in structure. Aortic valve is trileaflet. There is no aortic valvular sten osis. No aortic regurgitation is present. Mitral Valve The mitral valve is normal in structure. No evidence of mitral valve stenosis. Trace mitral regurgita tion. Tricuspid Valve The tricuspid valve is normal in structure. There is no tricuspid valve stenosis. Trace tricuspid reg urgitation. Unable to assess PA pressure. Pulmonic Valve The pulmonary valve is normal in structure. There is no pulmonic valvular stenosis. There is no pulmo clary valvular regurgitation. Great Vessels The aortic root is normal in size. The ascending aorta is normal in size. Aortic arch is normal in ca liber. IVC is normal in size and collapses >50% with inspiration. Pericardium There is no pericardial effusion. 2D Dimensions IVSD d PLAX 1.39 cm M: 0.6-1.2 Ao Root d 2.56 cm M: 3.1 - 3.7 LVPW d PLAX 1.26 cm M: 0.6 - 1.2 Ao Asc Diam d 2.88 cm M: 2.6 - 3.4 LVID d PLAX 4.54 cm M: 4.2 - 5.8 LVDs 3.06 cm M: 2.5 - 4.0 LV EF Teichholz 61.0 % FS 32.57 % LV EDV (Teich) 94.4 mL LV ESV (Teich) 36.8 mL M-Mode TAPSE 2.26 cm (M/F) >1.7 Auto EF LV EDV A4C 124.0 mL LV EDV A2C 130.3 mL LV EDV BP 126.3 mL LV ESV A4C 43.7 mL LV ESV A2C 54.0 mL LV ESV BP 48.7 mL LVEF(%) A4C 64.7 % LVEF(%) A2C 58.5 % LVEF(%) BP 61.5 % LV SV A4C 80.3 ml LV SV A2C 76.2 ml LV SV BP 77.6 ml LV CO A4C 7.1 L/min LV CO A2C 5.6 L/min LV CO BP 6.3 L/min HR A4C 88.46 BPM HR A2C 73.02 BPM LV EDV Index (BP) LA Volume LA Length A4C 5.5 cm LA Length A2C 5.5 cm LA Area A4C s 16.94 cm2 LA Area A2C s 16.03 cm2 LA Vol A4C A-L 44.39 mL LA Vol A2C A-L 39.63 mL LA Vol Biplane A-L 42.0 mL LA Vol/BSA A4C A-L LA Vol/BSA A2C A-L LA Vol/BSA BP A-L 17.9 mL/m2 LA Vol A4C MOD 41.5 mL LA Vol A2C MOD 36.9 mL LA Vol BP MOD 39.2 mL RA Volume RA Area A4C 16.8 cm2 RA ESV A4C (A-L) 47.1mL RA Vol/BSA A4C A-L RA Length A4C 5.1 cm RA ESV A4C (MOD) 44.4mL LV Diastology MV E' medial 0.082 (>0.07 m/s) MV E Vmax 0.82 (0.4-1.3 m/s) MV E/E' MED 9.97 (<14) MV A Vmax 0.65 (0.4-1.3 m/s) MV E' lateral 0.128 (>0.1 m/s) E/A Ratio 1.3 MV E/E' LAT 6.36 (<14) MV E' Average 0.105 m/s MV E/E'(average) 7.77 Aortic Valve AoV Vmax 1.83 m/s LVOT Vmax 1.37 m/s AoV Peak Grad 13.4 mmHg LVOT Peak Grad 7.5 mmHg AoV Area (Vmax) 2.25 cm2 LVOT VTI 0.265 m AoV VTI 0.333 m LVOT Mean Grad 5.2 mmHg AoV Mean Lalit. 1.27 m/s LVOT SV 79.63 mL AoV Mean Grad 7.4 mmHg LVOT Diam s 1.95 cm AoV Area (VTI) 2.39 cm2 Velocity Ratio 0.75 Mitral Valve MV DT 251 (160-240 msec) MV Vmax TIPS 0.91 m/s MV Mean Grad 1.4 (<2mmHg) MV VTI 0.234 m Pulmonary Valve PV Vmax 1.40 (0.5-1.5 m/s) RVOT Vmax 1.23 m/s PV Peak Grad 7.9 mmHg RVOT Peak Gr. 6.0 mmHg PV Mean Lalit 0.99 m/s RVOT VTI 0.145 m PV Mean Grad 4.5 mmHg RVOT Mean Gr. 3.1 mmHg Tricuspid Valve TV S' 0.20 m/s
== END ==
PROVIDERS: Visit Provider Nurse Practitioner Family
DX: R60.0 Localized edema (principal)
CPT/HCPCS: 93306

== ENCOUNTER 2024-06-18 08:14 | Outpatient (CLI) | payer MEDICARE, MEDICAID, SELFPAY ==
--- NOTE | 2024-06-18 08:00 | RT.EKG_ITS ---
APPROVED REPORT Exam: Resting ECG Reason for Exam: SOB Patient Location: O HR:95 bpm ECG Measurements Heart Rate 95 AXIS KS 178 P 43 QRSd 100 QRS -32 QT 353 T 32 QTc 444 Conclusion Sinus rhythm...normal P axis, V-rate 50- 99 RSR' in V1 or V2, probably normal variant...small R' only Baseline wander in lead(s) V1,V2
== END 2024-06-18 08:15 | disposition home or self-care (01) ==
LOC: DI.CARD 08:14
PROVIDERS: Visit Provider Internal Medicine Cardiovascular Disease
DX: R07.9 Chest pain, unspecified (principal); R06.02 Shortness of breath
CPT/HCPCS: 93010

== ENCOUNTER → 2024-06-18 13:54 | Outpatient (BNVA) | payer MEDICARE, MEDICAID, SELFPAY | PROVIDERS: Visit Provider Internal Medicine Cardiovascular Disease | DX: G47.30 Sleep apnea, unspecified (principal); R94.31 Abnormal electrocardiogram [ECG] [EKG]; R06.02 Shortness of breath; R07.9 Chest pain, unspecified | CPT/HCPCS: 93005; 99203 ==

== ENCOUNTER 2025-01-09 20:30 | Outpatient (REF) | payer MEDICARE, MEDICAID, SELFPAY ==
[2025-01-09 19:30] LABS: Abs Immature Grans 0.05 10^3/uL (0.0-0.06); Absolute Basophil Count 0.03 10^3/uL (0.0-0.2); Absolute Eosinophil Count 0.23 10^3/uL (0.0-0.7); Absolute Lymphocyte Count 1.82 10^3/uL (1.2-3.4); Absolute Monocyte Count 0.51 10^3/uL (0.1-0.8); Absolute Neutrophil Count 5.42 10^3/uL (1.2-6.7); Basophils % 0.4 %; Eosinophils % 2.9 %; HCT 54.5 % (40.0-50.0); Immature Grans % 0.6 %; Lymphocytes % 22.6 %; MCV 91 fL (80-95); Monocytes % 6.3 %; Neutrophils % 67.2 %; Platelet Count 325 10^3/uL (130-400); RBC 6.01 10^6/uL (4.36-5.78); RDW-SD 43.2 fL; WBC 8.06 10^3/uL (4.4-10.8)
[2025-01-09 20:03] LABS: Hemoglobin A1C 5.4 % (<5.7)
[2025-01-09 20:29] LABS: Lithium 0.6 mmol/L (0.6-1.2)
[2025-01-09 20:43] LABS: ALT 71 U/L (16-63); AST 19 U/L (15-37); Albumin 4.4 g/dL (3.4-5.0); Alkaline Phosphatase 104 U/L (46-116); Anion Gap 6.5 mmol/L (3-11); BUN 8 mg/dL (7-18); Bilirubin, Total 0.8 mg/dL (0.2-1.0); CO2 31.5 mmol/L (21.0-32.0); CREATININE 0.9 mg/dL (0.70-1.30); Calcium 10.4 mg/dL (8.5-10.1); Calculated LDL 136 mg/dL (<100); Chloride 104 mmol/L (98-107); Cholesterol 234 mg/dL (<200); Estimated GFR 116.37 (mL/min/1.73m2); Glucose 96 mg/dL (74-106); HDL Cholesterol 44 mg/dL (>or=40); Potassium 4.5 mmol/L (3.5-5.1); Sodium 142 mmol/L (136-145); TSH 1.07 uIU/mL (0.36-3.74); Total Protein 7.7 g/dL (6.4-8.2); Triglyceride 272 mg/dL (<150); Vitamin B12 639 pg/mL (193-986); Vitamin D 25 Total 29 ng/mL (30-100)
[2025-01-10 17:52] LABS: T4, Free 1.3 ng/dL (0.8-2.2)
== END 2025-01-09 20:31 | disposition home or self-care (01) ==
LOC: NCHCN 20:30
PROVIDERS: PCP Nurse Practitioner Family; Visit Provider Nurse Practitioner Family
DX: E03.9 Hypothyroidism, unspecified (principal); Z68.41 Body mass index [BMI] 40.0-44.9, adult; F31.81 Bipolar II disorder
CPT/HCPCS: 80053; 80061; 82306; 80178; 82607; 83036; 84439; 84443; 85025